=== PATIENT | female | born 1950 | race Caucasian/White ===

== ENCOUNTER 2023-10-12 05:27 | Day surgery (SDC) | payer MEDICARE, OTHER ==
[~2023-10-12] VITALS: Ht 157.5 cm; Wt 58.2 kg
[2023-10-12] VITALS (15 sets, daily range): BP systolic 111–141; BP diastolic 55–87; PULSE 64–81
[~2023-10-12 05:27] MED LIST: ASPI-1444 PO; ISOS30TA92 PO; MAGN400T25 PO; METF-81 PO; METO-408 PO; NITR0.4T50 SL; PANT40TA54 PO; RANO500T27 PO; RIVA2.5T3 PO; ROSU20TA73 PO; TRAM50TA5 PO
[2023-10-12 06:12] LABS: EOSINOPHILS % (AUTO) 4.7 % (1.0-6.0); HEMATOCRIT 39.7 % (36-46); HEMOGLOBIN 13.2 g/dL (12.0-16.0); LYMPHOCYTES # (AUTO) 3.2 K/uL (1.0-4.8); MEAN CORPUSCULAR HEMOGLOBIN 28.7 pg (26.0-34.0); MEAN CORPUSCULAR HGB CONC 33.2 G/dL (31.0-37.0); MEAN CORPUSCULAR VOLUME 86 fL (80-100); MONOCYTES # (AUTO) 0.5 K/uL (0.1-1.0); MONOCYTES % (AUTO) 6.4 % (2.0-9.0); NEUTROPHILS # (AUTO) 2.9 K/uL (1.8-7.7); NEUTROPHILS % (AUTO) 41.9 % (40.0-70.0); PLATELET COUNT (AUTO) 198 K/uL (150-450); RED CELL DISTRIBUTION WIDTH 14.1 % (11.5-14.5)
[2023-10-12] MEDS: SODIUM CHLORIDE 0.9% 1,000 ML IV ONE (06:21)
[2023-10-12 06:26] LABS: PROTHROMBIN TIME 10.1 SEC (9.4-11.6)
[2023-10-12 06:28] LABS: ANION GAP 4 mmol/L (8-16); CALCIUM, TOTAL 9.3 mg/dL (8.8-10.5); CARBON DIOXIDE 32 mmol/L (22-29); CHLORIDE 103 mmol/L (98-107); GLOMERULAR FILTR. RATE CALC > 60 mL/min (>60); GLUCOSE,RANDOM 146 mg/dL (70-110); SODIUM SERUM 139 mmol/L (136-145); UREA NITROGEN, BLOOD 12 mg/dL (7-18)
[2023-10-12] MEDS ORDERED: IOHEXOL 300 MG/ML 100 ML VIAL ONE (07:02)
[2023-10-12] MEDS ORDERED: LIDOCAINE/PF 1% 30 ML VIAL ONE (07:02)
[2023-10-12] MEDS ORDERED: SODIUM BICARBONATE 50 MEQ/50 ML VIAL ONE (07:02)
[2023-10-12] MEDS ORDERED: HEPARIN SODIUM 1000 UNITS/NS 1,000 ML ONE (07:02)
[2023-10-12] MEDS ORDERED: NITROGLYCERIN 50 MG/D5% WATER 250 ML ONE (07:32)
[2023-10-12] MEDS ORDERED: VERAPAMIL HCL 2.5 MG/ML 2 ML VIAL ONE (07:32)
[2023-10-12] MEDS ORDERED: FentaNYL CITRATE PF 100 MCG/2 ML VIAL ONE (07:46)
[2023-10-12] MEDS ORDERED: MIDAZOLAM HCL 2 MG/2 ML VIAL ONE (07:47)
[2023-10-12] MEDS: IOHEXOL 300 MG/ML 100 ML VIAL ICOR ONE (08:19)
[2023-10-12] MEDS: FentaNYL CITRATE PF 100 MCG/2 ML VIAL IVP ONE (08:20)
[2023-10-12] MEDS: MIDAZOLAM HCL 2 MG/2 ML VIAL IVP ONE (08:20)
[2023-10-12] MEDS: HEPARIN SODIUM 1000 UNITS/NS 1,000 ML IARTER ONE (08:23)
[2023-10-12] MEDS: LIDOCAINE 1% 30 ML/SOD BICARB 8.4% 4 ML SQ ONE (08:23)
[2023-10-12] MEDS: HEPARIN SODIUM,PORCINE 1,000 UNITS/ML 10 ML VIAL IARTER ONE (08:36)
[2023-10-12] MEDS: NITROGLYCERIN/D5W 50 MG/250 ML IV BOTTLE IARTER ONE (08:37)
[2023-10-12] MEDS: VERAPAMIL HCL 2.5 MG/ML 2 ML VIAL IARTER ONE (08:38)
[2023-10-12 11:21] LABS: GLUCOMETER DEV NAME(LOC) SDS.; GLUCOSE,POINT OF CARE 226 MG/DL (70-110)
== END 2023-10-12 15:52 | disposition home or self-care (01) ==
LOC: CATHLAB 05:27
PROVIDERS: ATTEND Internal Medicine
DX: I25.10 Atherosclerotic heart disease of native coronary artery without angina pectoris (principal); I25.2 Old myocardial infarction; R94.31 Abnormal electrocardiogram [ECG] [EKG]; R94.39 Abnormal result of other cardiovascular function study; R06.02 Shortness of breath; R07.9 Chest pain, unspecified; I10 Essential (primary) hypertension; E11.9 Type 2 diabetes mellitus without complications; K29.70 Gastritis, unspecified, without bleeding; E78.00 Pure hypercholesterolemia, unspecified; Z95.2 Presence of prosthetic heart valve; Z79.899 Other long term (current) drug therapy; Z90.710 Acquired absence of both cervix and uterus; Z98.890 Other specified postprocedural states
CPT/HCPCS: 93458; 93005; 80048; 82962; 85025; 85610; 85730; 36415; J3010; J1644; J3490 ×4; J2250; Q9967; 99152